=== PATIENT | female | born 1965 | race Caucasian/White ===

== ENCOUNTER → 2019-05-05 | Outpatient (CLI) | payer OTHER ==
--- NOTE | 2019-05-09 10:59 | Diagnostic Imaging Report ---
Indication: Routine screening. Comparison is made with prior mammogram from 07/14/2014 and 07/10/2013. 2-D and 3-D bilateral screening mammography was performed with CAD. Scattered fibroglandular densities are identified bilaterally. No mass or malignant-appearing microcalcifications are seen. The axillae are unremarkable. Impression: BI-RADS Category 1 No mammographic features suspicious for malignancy are identified. ACR BI-RADS Category 1: Negative. Result letter will be mailed to the patient. Note: At least 10% of breast cancer is not imaged by mammography. Dictated by: Dictated on workstation # [id number]
== END ==
LOC: RAD 10:17
PROVIDERS: ATTEND Nurse Practitioner Primary Care
DX: Z12.31 Encounter for screening mammogram for malignant neoplasm of breast (principal); Z01.419 Encounter for gynecological examination (general) (routine) without abnormal findings
CPT/HCPCS: 77067

== ENCOUNTER 2022-04-02 21:42 | Emergency (ER) | payer BC, OTHER ==
[~2022-04-02] VITALS: Ht 155 cm; Wt 81.6 kg
--- NOTE | 2022-04-02 22:59 | ED Fall/Injury ---
General Chief Complaint: Upper Extremity Stated Complaint: FALL/RIGHT HAND/ANKLE INJURY Source: patient Allergies and Home Medications Allergies Coded Allergies: No Known Drug Allergies (Verified Allergy, Mild, 01/14/08) Patient Home Medication List Hydrocodone/Acetaminophen (Hydrocodone-Acetamin 5-325 mg) 5 Mg-325 Mg Tablet, 1 EACH PO Q4-6 HOURS PRN for PAIN Prescribed by: VI MUÑOZ on 04/02/22 2301 [None] , (Reported) Entered as Reported by: SHAYLA KEARNEY on 01/14/08 1010 Past Ddxrsmx-Jzanfx-Nitjcr Hx Patient Social History Tobacco Use?: No Smoking Status: Never a Smoker Smokeless Tobacco Frequency: Never a User Use of E-Cig and/or Vaping dev: No Use of E-Cig and/or Vaping Rene: Never a User Substance use?: No Alcohol Use?: No Pt feels they are or have been: No Immunizations Up To Date First/Initial COVID19 Vaccinat: 2021 Second COVID19 Vaccination Howrad: 2021 COVID19 Vaccine Row Boss: unknown Past Medical History Reproductive Disorders: Yes Physical Exam Vital Signs Capillary Refill : Height, Weight, BMI Height: '" Weight: lbs. oz. kg; BMI Method: Progress/Results/Core Measures Results/Orders My Orders Orders - VI MUÑOZ DO Forearm, Right, 2 Views (04/02/22 22:23) Wrist, Right, 3 Views Or More (04/02/22 22:23) Ed Ortho/Other Supplies Order (04/02/22 22:51) Rx-Hydrocodone/Apap 5-325 Mg (Rx-Vicodin (04/02/22 23:00) Hydrocodone/Apap 5/325 Tablet (Lortab 5 (04/02/22 23:15) Medications Given in ED Current Medications Medications Dose Ordered Sig/Ilgia Route Start Time Stop Time Status Last Admin Dose Admin Acetaminophen/ Hydrocodone Bitart 1 ea ONCE ONCE PO 04/02/22 23:15 04/02/22 23:16 DC 04/02/22 23:17 1 EA Acetaminophen/ Hydrocodone Bitart 1 ea Q4H PRN PO 04/02/22 23:00 04/02/22 23:17 1 EA Departure Impression Primary Impression: Closed fracture of right distal radius Additional Impression: Contusion of right lower leg Disposition: 01 HOME, SELF-CARE Condition: Stable Departure-Patient Inst. Decision time for Depature: 22:54 Referrals: VI SOTELO MD (PCP/Family) Primary Care Physician DESHAUN GARCIA MD Patient Instructions: Forearm and Wrist Fractures ED, How to Use a Shoulder Sling, Minor Contusion ED, SPLINT CARE Add. Discharge Instructions: WEAR SPLINT AND SLING AT ALL TIMES ICE TO AREA AT 20 MINUTE INTERVALS ELEVATE ARM MUCH POSSIBLE FOLLOW UP WITH DR. GARCIA THIS WEEK--CALL ON SUNDAY TO SCHEDULE APPOINTMENT All discharge instructions reviewed with patient and/or family. Voiced understanding. Scripts Hydrocodone/Acetaminophen (Hydrocodone-Acetamin 5-325 mg) 5 Mg-325 Mg Tablet 1 EACH PO Q4-6 HOURS PRN for PAIN, #20 TAB Prov: VI MUÑOZ DO 04/02/22 Work/School Note: Work Release Form Date Seen in the Emergency Department: Apr 02, 2022 Restrictions: Need Release from Doctor Other Restrictions Listed Below: NO WORK UNTIL RELEASED BY VI BOYCE DO Apr 02, 2022 22:59
[2022-04-02] MEDS ORDERED: ACHD5005 PO (23:01)
--- NOTE | 2022-04-02 23:04 | Diagnostic Imaging Report ---
CLINICAL INDICATION: Patient status post fall and wrist pain. EXAMS: 1: X-ray of the right forearm, 2 views. 2: X-ray of the right wrist, 3 views. COMPARISON: None. FINDINGS AND IMPRESSION: 1: There is a nondisplaced transverse fracture involving the distal radial metaphysis. 2: There is a nondisplaced transverse fracture involving the distal ulnar styloid process. 3: The remainder of the right wrist, visualized portions of the hand and forearm are unremarkable. There is no elbow effusion. Dictated by: Dictated on workstation # [id number]
[2022-04-02] MEDS ORDERED: HYDROcodone/APAP 5 MG/325 MG (LORTAB) TAB PO ONE (23:15)
[2022-04-02 23:50] VITALS: BP 160/89
== END 2022-04-02 23:41 | disposition home or self-care (01) ==
LOC: EDUNIT# 21:42 → ER 21:44
DX: S52.591A Other fractures of lower end of right radius, initial encounter for closed fracture (principal); S52.614G Nondisplaced fracture of right ulna styloid process, subsequent encounter for closed fracture with delayed healing; S80.11XA Contusion of right lower leg, initial encounter; X58.XXXA Exposure to other specified factors, initial encounter
CPT/HCPCS: 73090; 73110; 99282; A4565